=== PATIENT | male | born 1995 | race Caucasian/White ===

== ENCOUNTER 2018-09-22 14:36 | Emergency (ER) | payer MEDICAID, OTHER ==
[~2018-09-22] VITALS: Ht 167.6 cm; Wt 70.2 kg
[~2018-09-22 14:36] MED LIST: AMOX500C2 PO; HYDR-3498 PO; IBUP-1542 PO
[2018-09-22 14:39] VITALS: BP 125/65; PULSE 78; RESP 20; Ht 167.6 cm; Wt 70.2 kg
--- NOTE | 2018-09-22 20:10 | ERD ---
ER Documentation Chief Complaint Chief Complaint Complains of headache and sinus problems x 3 days HPI 23-year-old male presents for headache and sinus pain times 3 days. The symptoms actually started 3 weeks ago however he states that it is a little bit worse for the past 3 days. The sinus pain is noted in the paranasal area. Patient does have history of nose bleeds. Denies any fevers or chills. Denies cough or nasal congestion. No other complaints. ROS All systems reviewed and are negative except as per history of present illness. Medications Home Meds Active Scripts Hydrocodone Bit-Acetaminophen* ([place]*) 5-325 Mg Tab, 1 TAB PO Q6 PRN for PAIN, #7 TAB Prov:DEA ZELAYA MD 03/29/16 Ibuprofen* (Motrin*) 600 Mg Tab, 600 MG PO Q6H PRN for PAIN AND OR ELEVATED TEMP, #30 TAB Prov:DEA ZELAYA MD 03/29/16 Amoxicillin* (Amoxicillin*) 500 Mg Cap, 500 MG PO TID for 10 Days, CAP Prov:DEA ZELAYA MD 03/29/16 Allergies Allergies: Coded Allergies: No Known Allergy (Unverified , 03/29/16) PMhx/Soc Hx Alcohol Use: No Hx Substance Use: No Hx Tobacco Use: No Physical Exam Vitals Vital Signs Date Temp Pulse Resp B/P (MAP) Pulse Ox O2 O2 Flow FiO2 Time Delivery Rate 09/22/18 98.7 78 20 125/65 98 14:39 (85) Physical Exam Const: No acute distress Head: Atraumatic, paranasal tenderness to palpation Eyes: Normal Conjunctiva ENT: Normal External Ears, Nose and Mouth. Neck: Full range of motion. No meningismus. Resp: Clear to auscultation bilaterally Cardio: Regular rate and rhythm, no murmurs Skin: No petechiae or rashes Ext: No cyanosis, or edema Neur: Awake and alert Psych: Normal Mood and Affect Procedures/MDM Medical Decision Making: Differential diagnosis includes but not limited to sinus infection, septal hematoma, nasal polyps Patient appeared well on physical exam. There was mild tenderness to palpation of the paranasal sinuses. Patient advised to continue take Tylenol or Motrin which he has at home. Advised that he may need referral to ENT given the chronic nature of his problem. Patient advised to follow up with PCP in 1-2 days. Patient advised to return to ED for new or worsening symptoms. Patient stable on discharge from the ED. Disclaimer: Inadvertent spelling and grammatical errors are likely due to EHR/dictation software use and do not reflect on the overall quality of patient care. Also, please note that the electronic time recorded on this note does not necessarily reflect the actual time of the patient encounter. Departure Diagnosis: Primary Impression: Nasal pain Condition: Fair Patient Instructions: Understanding Nasal Anatomy: Inside View Referrals: [facility] YOU HAVE RECEIVED A MEDICAL SCREENING EXAM AND THE RESULTS INDICATE THAT YOU DO NOT HAVE A CONDITION THAT REQUIRES URGENT TREATMENT IN THE EMERGENCY DEPARTMENT. FURTHER EVALUATION AND TREATMENT OF YOUR CONDITION CAN WAIT UNTIL YOU ARE SEEN IN YOUR DOCTORS OFFICE WITHIN THE NEXT 1-2 DAYS. IT IS YOUR RESPONSIBILITY TO MAKE AN APPOINTMENT FOR FOLOW-UP CARE. IF YOU HAVE A PRIMARY DOCTOR --you should call your primary doctor and schedule an appointment IF YOU DO NOT HAVE A PRIMARY DOCTOR YOU CAN CALL OUR PHYSICIAN REFERRAL HOTLINE AT IF YOU CAN NOT AFFORD TO SEE A PHYSICIAN YOU CAN CHOSE FROM THE FOLLOWING FORMERLY [facility], [facility] CLINICS [facility] [address] [facility] [address] [facility]. [facility] [address] [facility] [facility] [address] [facility] [address] [facility]. [facility]. [address] Additional Instructions: Llame al doctor MAANA y sherri jatinder KASSIDY PARA DENTRO DE 1-2 ESTEBAN.Dgale a la secretaria que nosotros le instruimos hacer esta kassidy.Avise o llame si perkins condicin se empeora antes de la kassidy. Regresa aqui si peor o no mejor. DEA CARPENTER DO Sep 22, 2018 20:10
[2018-10-07] MEDS ORDERED: CYCL10TA7 PO (22:21)
[2018-10-07] MEDS ORDERED: IBUP800T48 PO (22:21)
== END 2018-09-22 18:25 | disposition home or self-care (01) ==
LOC: FTE 14:36
DX: J34.89 Other specified disorders of nose and nasal sinuses (principal)
CPT/HCPCS: 70140; Z7502

== ENCOUNTER 2018-11-08 23:01 | Emergency (ER) | payer OTHER ==
[~2018-11-08] VITALS: Ht 170.2 cm; Wt 65.2 kg
[~2018-11-08 23:01] MED LIST changes: +CYCL10TA7 PO; +IBUP800T48 PO
[2018-11-08 23:06] VITALS: Ht 170.2 cm; Wt 65.2 kg
--- NOTE | 2018-11-09 01:09 | ERD ---
ER Documentation Chief Complaint Chief Complaint RIGHT SIDED NECK PAIN, 04/05 HPI 23-year-old male, presents the emergency right-sided neck pain, dull, constant, 04/05. The patient denies fevers, no chills. The pain started 2 weeks ago. No history of trauma. ROS All systems reviewed and are negative except as per history of present illness. Medications Home Meds Active Scripts Baclofen* (Baclofen*) 10 Mg Tablet, 10 MG PO Q8, #15 TAB Prov:DM TAPIA MD 11/09/18 Ibuprofen* (Motrin*) 400 Mg Tab, 400 MG PO Q8, #20 TAB Prov:DM TAPIA MD 11/09/18 Ibuprofen* (Motrin*) 800 Mg Tab, 800 MG PO Q6, #30 TAB Prov:YRN FERRARO PA-C 10/07/18 Cyclobenzaprine Hcl* (Cyclobenzaprine Hcl*) 10 Mg Tablet, 10 MG PO BID, #15 TAB Prov:YRN FERRARO PA-C 10/07/18 Hydrocodone Bit-Acetaminophen* ([place]*) 5-325 Mg Tab, 1 TAB PO Q6 PRN for PAIN, #7 TAB Prov:DEA ZELAYA MD 03/29/16 Ibuprofen* (Motrin*) 600 Mg Tab, 600 MG PO Q6H PRN for PAIN AND OR ELEVATED TEMP, #30 TAB Prov:DEA ZELAYA MD 03/29/16 Amoxicillin* (Amoxicillin*) 500 Mg Cap, 500 MG PO TID for 10 Days, CAP Prov:DEA ZELAYA MD 03/29/16 Allergies Allergies: Coded Allergies: No Known Allergy (Unverified , 03/29/16) PMhx/Soc Medical and Surgical Hx: pt denies Medical Hx, pt denies Surgical Hx Hx Alcohol Use: No Hx Substance Use: No Hx Tobacco Use: No Smoking Status: Never smoker Physical Exam Vitals Vital Signs Date Temp Pulse Resp B/P (MAP) Pulse Ox O2 O2 Flow FiO2 Time Delivery Rate 11/08/18 97.9 82 20 130/80 99 23:06 (97) Physical Exam Const: No acute distress Head: Atraumatic Eyes: Normal Conjunctiva ENT: Normal External Ears, Nose and Mouth. Neck: Full range of motion. No meningismus. Resp: Clear to auscultation bilaterally Cardio: Regular rate and rhythm, no murmurs Abd: Soft, non tender, non distended. Normal bowel sounds Skin: No petechiae or rashes Back: No midline or flank tenderness Ext: No cyanosis, or edema Neur: Awake and alert Psych: Normal Mood and Affect Results 24 hrs Current Medications Medications Dose Sig/Elier Start Time Status Last (Trade) Ordered Route PRN Stop Time Admin Dose Reason Admin Ketorolac 30 mg ONCE ONCE 11/09/18 DC 11/09/18 Tromethamine IM 02:08 02:22 (Toradol) 11/09/18 02:09 Procedures/MDM At the time of discharge, vital signs stable, physical examination unremarkable, symptoms improved, no red flags. Differential diagnosis include but not limited to: Cervical sprain/strain, cervical radiculopathy, herniated disk, muscle spasm. Neurovascular exam grossly intact. no clinical findings suggestive of acute infectious process, no acute deformity, no edema, no rashes. Physical examination and clinical presentation consistent most likely with acute muscle spasm. During the ED course the patient received treatment with Toradol IM presenting overall improvement of the symptoms. Results and clinical impression discussed with patient who agrees with management. The patient is stable to be treated outpatient and will be discharged home with recommendations and close monitoring The patient was instructed to follow up with the primary care provider in the next 48h. If symptoms persist, worsen or new symptoms develop, then patient should return to the ED immediately. Instructions explained and given to patient with acknowledgment and demonstrated understanding. Disclaimer: Inadvertent spelling and grammatical errors are likely due to EHR/dictation software use and do not reflect on the overall quality of patient care. Also, please note that the electronic time recorded on this note does not necessarily reflect the actual time of the patient encounter. Departure Diagnosis: Primary Impression: Neck muscle spasm Condition: Stable Additional Instructions: Muchas roberto por [facility] para perkins servicio. Esperamos que en perkins visita a la ciera de emergencia perkins problema medico haya sido solucionado y que se sienta mucho mejor. Para estar seguros que perkins mejoria sigue en proceso, le pedimos el favor de hacer jatinder melissa de seguimiento medico con perkins doctor primario en los proximos 2-4 lynne. Lleve con usted estos documentos y las medicinas recetadas. Si tapan sintomas empeoran, NO SE ESPERE, por favor regrese a ciera de emergencia INMEDIATAMENTE. En kerrie que usted no tenga un mdico de atencin primaria: Llame al mdico o clnica comunitaria de referencia que aparece abajo melissa las horas de consultorio para hacer jatinder melissa para que le vean. CLINICAS: [facility] [phone] [address] [facility] [phone] [address] [facility] [phone] [facility] [phone] [address] [facility] [phone] [address] [facility]. [phone] DM MOELLER MD Nov 09, 2018 01:09
[2018-11-09] MEDS ORDERED: KETOROLAC 30 MG INJ IM ONE (02:08)
[2018-11-09] MEDS ORDERED: IBUP-1561 PO (02:37)
[2018-11-09] MEDS ORDERED: BACL10TA PO (02:37)
[2018-11-09 02:57] VITALS: BP 126/63; PULSE 75; RESP 19
== END 2018-11-09 03:00 | disposition home or self-care (01) ==
LOC: FTE 23:01
DX: M62.838 Other muscle spasm (principal)
CPT/HCPCS: 96372; J1885; Z7502

== ENCOUNTER 2018-11-26 18:45 | Emergency (ER) | payer OTHER ==
[~2018-11-26] VITALS: Ht 162.6 cm; Wt 66.1 kg
[~2018-11-26 18:45] MED LIST changes: +BACL10TA PO; +IBUP-1561 PO
[2018-11-26 19:16] VITALS: BP 128/74; PULSE 82; RESP 20; Ht 162.6 cm; Wt 66.1 kg
--- NOTE | 2018-11-26 21:12 | ERD ---
ER Documentation Chief Complaint Chief Complaint NECK PAIN X'S 1 MONTH HPI 23-year-old male, presents to the emergency department, complaining of neck pain for 1 month. No history of trauma, the pain is 8/10, dull, worsened by neck flexion and lateral rotation. He denies distal weakness, numbness or tingling. ROS All systems reviewed and are negative except as per history of present illness. Medications Home Meds Active Scripts Baclofen* (Baclofen*) 10 Mg Tablet, 10 MG PO BID, #14 TAB Prov:DM TAPIA MD 11/26/18 Naproxen* (Naprosyn*) 500 Mg Tablet, 500 MG PO BID PRN for PAIN AND/OR INFLAMMATION, #14 TAB Prov:DM TAPIA MD 11/26/18 Baclofen* (Baclofen*) 10 Mg Tablet, 10 MG PO Q8, #15 TAB Prov:DM TAPIA MD 11/09/18 Ibuprofen* (Motrin*) 400 Mg Tab, 400 MG PO Q8, #20 TAB Prov:DM TAPIA MD 11/09/18 Ibuprofen* (Motrin*) 800 Mg Tab, 800 MG PO Q6, #30 TAB Prov:YRN FERRARO PA-C 10/07/18 Cyclobenzaprine Hcl* (Cyclobenzaprine Hcl*) 10 Mg Tablet, 10 MG PO BID, #15 TAB Prov:YRN FERRARO PA-C 10/07/18 Hydrocodone Bit-Acetaminophen* ([place]*) 5-325 Mg Tab, 1 TAB PO Q6 PRN for PAIN, #7 TAB Prov:DEA ZELAYA MD 03/29/16 Ibuprofen* (Motrin*) 600 Mg Tab, 600 MG PO Q6H PRN for PAIN AND OR ELEVATED T EMP, #30 TAB Prov:DEA ZELAYA MD 03/29/16 Amoxicillin* (Amoxicillin*) 500 Mg Cap, 500 MG PO TID for 10 Days, CAP Prov:DEA ZELAYA MD 03/29/16 Allergies Allergies: Coded Allergies: No Known Allergy (Unverified , 03/29/16) PMhx/Soc Medical and Surgical Hx: pt denies Medical Hx, pt denies Surgical Hx Hx Alcohol Use: No Hx Substance Use: No Hx Tobacco Use: No Smoking Status: Never smoker FmHx Family History: No diabetes, No coronary disease Physical Exam Vitals Vital Signs Date Temp Pulse Resp B/P (MAP) Pulse Ox O2 O2 Flow FiO2 Time Delivery Rate 11/26/18 98.0 82 20 128/74 99 19:16 (92) Physical Exam Patient alert, oriented, vital signs stable. HEENT: Normocephalic, atraumatic. EYES: PERRLA, EOMI, Sclera and conjunctiva appear normal. EARS: Canals clear, tympanic membranes WNL. THROAT: Normal oropharynx. NECK: Supple, No lymphadenopathy. Bilateral paracervical muscle spasm noticed, full range of motion, no vertebral tenderness. HEART: RRR, no rubs, murmurs, clicks or gallops. LUNGS: Clear to auscultation. ABDOMEN: Soft, non-tender without masses or hepatosplenomegaly. EXTREMITIES: No edema bilaterally. BACK: Full ROM, no deformity, normal back exam NEURO: Cranial nerves grossly intact, no motor or sensory deficit SKIN: No rashes, no petechia. Results 24 hrs Current Medications Medications Dose Sig/Elier Start Time Status Last (Trade) Ordered Route PRN Stop Time Admin Dose Reason Admin Ketorolac 60 mg ONCE STAT 11/26/18 DC 11/26/18 Tromethamine IM 21:23 11/26/18 21:33 (Toradol) 21:31 Procedures/MDM No red flags. Differential diagnosis include but not limited to: Cervical sprain/strain, cervical radiculopathy, herniated disk, muscle spasm. Omi rovascular exam grossly intact. no clinical findings suggestive of acute infectious process, no acute deformity, no edema, no rashes. Physical examination and clinical presentation consistent most likely with cervical muscle spasm. During the ED course the patient received treatment with Toradol IM presenting overall improvement of the symptoms. Results and clinical impression discussed with recent who agrees with management. The patient is stable to be treated outpatient and will be discharged home with recommendations and close monitoring The patient was instructed to follow up with the primary care provider in the next 48h. If symptoms persist, worsen or new symptoms develop, then patient should return to the ED immediately. Instructions explained and given to patient with acknowledgment and demonstrated understanding. Disclaimer: Inadvertent spelling and grammatical errors are likely due to EHR/dictation software use and do not reflect on the overall quality of patient care. Also, please note that the electronic time recorded on this note does not necessarily reflect the actual time of the patient encounter. Departure Diagnosis: Primary Impression: Neck muscle spasm Condition: Stable Additional Instructions: Muchas roberto por [facility] para perkins servicio. Esperamos que en perkins visita a la ciera de emergencia perkins problema medico haya sido solucionado y que se sienta mucho mejor. Para estar seguros que perkins mejoria sigue en proceso, le pedimos el favor de hacer jatinder melissa de seguimiento medico con perkins doctor primario en los proximos 2-4 lynne. Lleve con usted estos documentos y las medicinas recetadas. Si tapan sintomas empeoran, NO SE ESPERE, por favor regrese a ciera de emergencia INMEDIATAMENTE. En kerrie que usted no tenga un mdico de atencin primaria: Llame al mdico o clnica comunitaria de referencia que aparece abajo melissa las horas de consultorio para hacer jatinder melissa para que le vean. CLINICAS: [facility] [phone] [address] [facility] [phone] [address] [facility] [phone] [address] [facility] [phone] [address] [place] [id number] [phone] [facility]. [phone] DM MOELLER MD Nov 26, 2018 21:12
[2018-11-26] MEDS ORDERED: KETOROLAC 60 MG INJ IM STA (21:23)
[2018-11-26] MEDS ORDERED: BACL10TA PO (22:49)
[2018-11-26] MEDS ORDERED: NAPR-985 PO (22:49)
== END 2018-11-26 23:02 | disposition home or self-care (01) ==
LOC: FTE 18:45
DX: M62.838 Other muscle spasm (principal)
CPT/HCPCS: 72040; J1885; 96372

== ENCOUNTER 2019-01-20 17:38 | Emergency (ER) | payer OTHER ==
[~2019-01-20] VITALS: Ht 157.5 cm; Wt 67.4 kg
[~2019-01-20 17:38] MED LIST changes: +NAPR-985 PO
[2019-01-20 18:04] VITALS: Ht 157.5 cm; Wt 67.4 kg
[2019-01-20] MEDS ORDERED: KETOROLAC 60 MG INJ IM STA (19:39)
[2019-01-20] MEDS ORDERED: IBUP-1542 PO (19:52)
[2019-01-20] MEDS ORDERED: CYCL10TA7 PO (19:52)
[2019-01-20 20:05] VITALS: BP 111/74; PULSE 76; RESP 18
--- NOTE | 2019-01-24 07:06 | ERD ---
ER Documentation Chief Complaint Chief Complaint neck pain x1mth, no deformity noted HPI 23-year-old male presents complaint of neck pain for the past month. States that he has been to other doctors and received x-rays but they told him it was just a muscle spasm. States that the muscle pain continues. States that the pain is made worse with rotating the neck. Denies any masses on the neck. Denies any numbness, tingling, weakness, headaches, fevers, chills. ROS All systems reviewed and are negative except as per history of present illness. Medications Home Meds Active Scripts Ibuprofen* (Motrin*) 600 Mg Tab, 600 MG PO Q6, #30 TAB Prov:TRISHA BAIRES 01/20/19 Cyclobenzaprine Hcl* (Cyclobenzaprine Hcl*) 10 Mg Tablet, 10 MG PO TID, #20 TAB Prov:TRISHA BAIRES 01/20/19 Baclofen* (Baclofen*) 10 Mg Tablet, 10 MG PO BID, #14 TAB Prov:DM TAPIA MD 11/26/18 Naproxen* (Naprosyn*) 500 Mg Tablet, 500 MG PO BID PRN for PAIN AND/OR INFLAMMA TION, #14 TAB Prov:DM TAPIA MD 11/26/18 Baclofen* (Baclofen*) 10 Mg Tablet, 10 MG PO Q8, #15 TAB Prov:DM TAPIA MD 11/09/18 Ibuprofen* (Motrin*) 400 Mg Tab, 400 MG PO Q8, #20 TAB Prov:DM TAPIA MD 11/09/18 Ibuprofen* (Motrin*) 800 Mg Tab, 800 MG PO Q6, #30 TAB Prov:YRN FERRARO PA-C 10/07/18 Cyclobenzaprine Hcl* (Cyclobenzaprine Hcl*) 10 Mg Tablet, 10 MG PO BID, #15 TAB Prov:YRN FERRARO PA-C 10/07/18 Hydrocodone Bit-Acetaminophen* ([place]*) 5-325 Mg Tab, 1 TAB PO Q6 PRN for PAIN, #7 TAB Prov:DEA ZELAYA MD 03/29/16 Ibuprofen* (Motrin*) 600 Mg Tab, 600 MG PO Q6H PRN for PAIN AND OR ELEVATED TEMP, #30 TAB Prov:DEA ZELAYA MD 03/29/16 Amoxicillin* (Amoxicillin*) 500 Mg Cap, 500 MG PO TID for 10 Days, CAP Prov:DEA ZELAYA MD 03/29/16 Allergies Allergies: Coded Allergies: No Known Allergy (Unverified , 03/29/16) PMhx/Soc Medical and Surgical Hx: pt denies Medical Hx, pt denies Surgical Hx Hx Alcohol Use: No Hx Substance Use: No Hx Tobacco Use: No Smoking Status: Never smoker FmHx Family History: No diabetes, No coronary disease, No other Physical Exam Vitals Vital Signs Date Temp Pulse Resp B/P (MAP) Pulse Ox O2 O2 Flow FiO2 Time Delivery Rate 01/20/19 98.2 76 18 111/74 98 Room Air 20:05 (86) 01/20/19 98.9 79 18 135/71 97 18:04 (92) Physical Exam Const: No acute distress Head: Atraumatic Eyes: Normal Conjunctiva ENT: Normal External Ears, Nose and Mouth. Neck: Full range of motion. No meningismus. No midline tenderness. No masses noted. Resp: Clear to auscultation bilaterally Cardio: Regular rate and rhythm, no murmurs Abd: Soft, non tender, non distended. Normal bowel sounds Skin: No petechiae or rashes Back: No midline or flank tenderness Ext: No cyanosis, or edema. 5 out of 5 strength in upper extremities. Distal pulses and sensation intact. Neur: Awake and alert Psych: Normal Mood and Affect Results 24 hrs Current Medications Medications Dose Sig/Elier Start Time Status Last (Trade) Ordered Route PRN Stop Time Admin Dose Reason Admin Ketorolac 60 mg ONCE STAT 01/20/19 DC 01/20/19 Tromethamine IM 19:39 19:47 (Toradol) 01/20/19 19:42 Procedures/MDM MDM: Patient's presentation is consistent with muscle spasm. Patient was advised to follow-up with his primary care to get referral for physical therapy as it seems to be a chronic condition. In the meantime patient was placed on muscle relaxant. I have low suspicion for neurovascular compromise, compartment syndrome, fracture, osteomyelitis, septic joint, or other emergent condition. Patient discharged with strict ER precautions. Patient advised to follow up with PMD. All questions answered at discharge. Departure Diagnosis: Primary Impression: Neck pain Condition: Stable Patient Instructions: Neck Pain, No Trauma Referrals: RAYMOND FLANNERY (PCP) Additional Instructions: FOLLOW UP WITH YOUR PRIMARY CARE PHYSICIAN TOMORROW.Return to this facility if you are not improving as expected. TRISHA BAIRES January 24, 2019 07:06
== END 2019-01-20 20:07 | disposition home or self-care (01) ==
LOC: FTE 17:38
DX: M54.2 Cervicalgia (principal)
CPT/HCPCS: 96372; J1885; Z7502

== ENCOUNTER 2019-02-07 23:10 | Emergency (ER) | payer OTHER ==
[~2019-02-07] VITALS: Ht 167.6 cm; Wt 66.5 kg
[2019-02-07 23:17] VITALS: BP 132/58; PULSE 71; RESP 18; Ht 167.6 cm; Wt 66.5 kg
[2019-02-08] MEDS ORDERED: KETOROLAC 30 MG INJ IM STA (03:23)
--- NOTE | 2019-02-08 03:23 | ERD ---
ER Documentation Chief Complaint Chief Complaint neck pain x 2 months, denies trauma HPI This is a 23-year-old male presents here in emergency department with complaints of neck pain for about 2 months. Denies headache, head injury, loss of consciousness, dizziness, neck stiffness, throat pain, difficulty swallowing, difficulty breathing lying flat, shoulder pain, chest pain, back pain, abdominal pain, nausea, vomiting, constipation, diarrhea, urinary symptoms, loss of bowel and bladder control, trauma, injury, falls, difficulty walking due to pain, numbness or tingling sensation, calf pain, recent travel, recent major surgery in the last 3 weeks, calf pain, recent long travel, recent exposure to any illness, recent antibiotic use in the last 3 months, fever, chills, seizures. Past medical history: Surgical history: Social: Denies smoking, use of alcoholic beverages, use of illegal drugs. ROS All systems reviewed and are negative except as per history of present illness. Medications Home Meds Active Scripts Cyclobenzaprine Hcl* (Cyclobenzaprine Hcl*) 10 Mg Tablet, 10 MG PO TID PRN for MUSCLE SPASMS, #15 TAB Prov:DANIELA TAYLOR 02/08/19 Ibuprofen* (Motrin*) 600 Mg Tab, 600 MG PO Q6H PRN for PAIN AND OR ELEVATED TEMP, #30 TAB Prov:DANIELA TAYLOR 02/08/19 Ibuprofen* (Motrin*) 600 Mg Tab, 600 MG PO Q6, #30 TAB Prov:TRISHA BAIRES 01/20/19 Cyclobenzaprine Hcl* (Cyclobenzaprine Hcl*) 10 Mg Tablet, 10 MG PO TID, #20 TAB Prov:TRISHA BAIRES 01/20/19 Baclofen* (Baclofen*) 10 Mg Tablet, 10 MG PO BID, #14 TAB Prov:DM TAPIA MD 11/26/18 Naproxen* (Naprosyn*) 500 Mg Tablet, 500 MG PO BID PRN for PAIN AND/OR INFLAMMATION, #14 TAB Prov:DM TAPIA MD 11/26/18 Baclofen* (Baclofen*) 10 Mg Tablet, 10 MG PO Q8, #15 TAB Prov:DM TAPIA MD 11/09/18 Ibuprofen* (Motrin*) 400 Mg Tab, 400 MG PO Q8, #20 TAB Prov:DM TAPIA MD 11/09/18 Ibuprofen* (Motrin*) 800 Mg Tab, 800 MG PO Q6, #30 TAB Prov:YRN FERRARO PA-C 10/07/18 Cyclobenzaprine Hcl* (Cyclobenzaprine Hcl*) 10 Mg Tablet, 10 MG PO BID, #15 TAB Prov:YRN FERRARO PA-C 10/07/18 Hydrocodone Bit-Acetaminophen* ([place]*) 5-325 Mg Tab, 1 TAB PO Q6 PRN for PAIN, #7 TAB Prov:DEA ZELAYA MD 03/29/16 Ibuprofen* (Motrin*) 600 Mg Tab, 600 MG PO Q6H PRN for PAIN AND OR ELEVATED TEMP, #30 TAB Prov:DEA ZELAYA MD 03/29/16 Amoxicillin* (Amoxicillin*) 500 Mg Cap, 500 MG PO TID for 10 Days, CAP Prov:DEA ZELAYA MD 03/29/16 Allergies Allergies: Coded Allergies: No Known Allergy (Unverified , 03/29/16) PMhx/Soc Medical and Surgical Hx: pt denies Medical Hx, pt denies Surgical Hx Hx Alcohol Use: No Hx Substance Use: No Hx Tobacco Use: No Smoking Status: Never smoker Physical Exam Vitals Vital Signs Date Temp Pulse Resp B/P (MAP) Pulse Ox O2 O2 Flow FiO2 Time Delivery Rate 02/07/19 98.0 71 18 132/58 98 23:17 (82) Physical Exam Const: No acute distress Head: Normocephalic. No deformities. Scalp is intact. Eyes: Normal Conjunctiva. There no visual field loss. There is no pain in eye movement. Extraocular movement of her eyes are within normal limits. ENT: Normal External Ears, Nose and Mouth. Bilateral ears: No ear laceration. TM is not erythematous. No bleeding. No discharge. No hearing loss. No mastoid tenderness. No foreign body seen. Nose: Midline without deviation and without deformity. No septal hematoma. There is no frontal or maxillary sinus tenderness palpation. Lips/throat: No lip swelling. No lip laceration. No tongue laceration. No tongue swelling. Able to control tongue movement. Uvula is in midline and nondisplaced. Tonsils are +1 bilaterally without redness and without exudates. Tolerating secretions. Patent airway. Speaks full and clear sentences. No tripoding. Bilateral mandibular area: No deformities. No tenderness. No swelling. Is good and full range of motion. There are no signs of direct injury to the face. Neck: Full range of motion. No meningismus. No nuchal rigidity. No signs of meningeal irritation. Resp: Clear to auscultation bilaterally. Chest area: Symmetrical. No vesicular lesions. Mild tenderness to palpation to anterior area. Cardio: Regular rate and rhythm, no murmurs Abd: Soft, non tender, non distended. Normal bowel sounds. No bruising. No abdominal tenderness. Negative Rothman sign. Negative Nahun sign (heel jar test). Negative psoas sign. Negative Rovsing sign. No CVA tenderness. No signs of direct injury to the abdomen. Skin: No petechiae or rashes. No bruising. Skin is intact. Color appears normal for ethnicity. No skin tenting. No signs of severe dehydration. Back: No midline or flank tenderness. T-spine/L-spine are midline with good and full range of motion and is no swelling/deformity/bulging/point of tenderness. Bilateral hips are stable and unremarkable. Able to bear weight on left lower extremity. Able to bear weight on right lower extremity. No saddle anesthesia. No neurovascular deficit. Ext: No cyanosis, or edema. Left shoulder/humerus/elbow/forearm/wrist/hand are unremarkable. Left radial pulse is within normal limits. Has good and full function of left hand. Right shoulder/humerus/elbow/forearm/wrist/hand are unremarkable. Right radial pulse is within normal limits. Has good and full function of right hand. Capillary refills to bilateral upper extremities are less than 2 seconds. Left femur/knee/tibia and fibular aspect/ankle/foot are unremarkable. Left pedal pulse is within normal limits. Right femur/knee/tibia and fibular aspect/ankle/foot are unremarkable. Right pedal pulse is within normal limits. Capillary refills to bilateral lower extremities are less than 2 seconds. No neurovascular deficit. Ambulatory with steady gait and without pain. Neur: Awake and alert. Romberg test negative. No neurological deficits. Psych: Normal Mood and Affect. Denies auditory/visual hallucinations/d elusions. Not suicidal. Not homicidal. Has the capacity to decide for herself. Has good support system at home. Results 24 hrs Current Medications Medications Dose Sig/Elier Start Time Status Last (Trade) Ordered Route PRN Stop Time Admin Dose Reason Admin Ketorolac 30 mg ONCE STAT 02/08/19 DC 02/08/19 Tromethamine IM 03:23 03:57 (Toradol) 02/08/19 03:24 1 tab ONCE ONCE 02/08/19 DC 02/08/19 Acetaminophen PO 03:30 03:56 / 02/08/19 03:31 Hydrocodone Bitart ([place] (5/325)) Procedures/MDM Diagnostic tests: I offered diagnostic tests but patient strongly refused. Treatment: Toradol IM. [place] p.o. Re-evaluation: Denies headache, neck pain, neck stiffness, chest pain, back pain. No neurovascular deficit. Romberg test is negative. No neurological deficits. Stated that he feels much better at this time and that he is ready to go home. Stated that he is comfortable going home. Differential diagnosis I have low suspicion for C-spine fracture, C-spine subluxation, stroke, acute myocardial infarction. Final diagnosis: Muscle spasms. Cervical radiculopathy. Prescription: Flexeril. Motrin. Follow-up with PCP in the next 24-48 hours. Come back here in the emergency department for any new symptoms or any worsening symptoms. All questions and concerns were answered. Patient and family members verbalized understanding and agreed with plan of care. Hemodynamically stable on discharge. Departure Diagnosis: Primary Impression: Radiculopathy Additional Impressions: Neck muscle spasm Muscle spasms of neck Condition: Stable Additional Instructions: Follow-up with PCP in the next 24-48 hours. Come back here in the emergency department for any new symptoms or any worsening symptoms. DANIELA TAYLOR Feb 08, 2019 03:23
[2019-02-08] MEDS ORDERED: IBUP-1542 PO (03:24)
[2019-02-08] MEDS ORDERED: CYCL10TA7 PO (03:24)
[2019-02-08] MEDS ORDERED: HYDROCODONE/APAP (5/325) TAB PO ONE (03:30)
== END 2019-02-08 04:32 | disposition home or self-care (01) ==
LOC: FTE 23:10
DX: M54.12 Radiculopathy, cervical region (principal); M62.838 Other muscle spasm
CPT/HCPCS: 96372; Z7502; Z7610